=== PATIENT | male | born 1950 | race Caucasian/White ===

== ENCOUNTER 2016-11-14 16:16 | Inpatient (IN) | payer MEDICARE, OTHER ==
--- NOTE | ~2016-11-14 | CR72 ---
[facility] A Service of [facility] & [facility] RADIOLOGY TEXT RESULTS PATIENT: RHEA MACEDO LOCATION: [facility] 567-01 : 51 UNIT #: [id number] AGE: [address]: Riccardo Alvarez MD SEX: M ORDER DR: [id number] [facility] [address] [place], [place] [address] [id number] MR#: [id number] Acc #: [id number] NAME: RHEA MACEDO. : 1950 SEX: M STUDY DATE/TIME: 11/14/2016 15:20 UNIT: CEDOF ROOM: 95471 STUDY DESCRIPTION: CR Chest Single View Portable Attending Physician: Riccardo Alvarez M.D. Ordering Physician: Miles Nicholson M.D. Primary Care Physician: Messi Shaver M.D. MEDICAL IMAGING REPORT This report is preliminary unless electronic signature is present EXAM AP portable chest. DATE OF EXAM 11/14/2016 at 15:20. HISTORY Shortness of breath with activity and chest pain for 2 days. History of carotid artery disease. Previous history of stroke. Diabetes. Coronary artery bypass graft in 2007. Former smoker. Hypertension. COMPARISON AP portable chest, 07/30/2016. FINDINGS Stable cardiac enlargement allowing for patient rotation. No acute airspace disease is seen. No pleural effusion. No pneumothorax. No acute osseous abnormalities. IMPRESSION Stable cardiac enlargement. No acute chest findings. Dictated by... Marj Roberto M.D. THIS IS AN ELECTRONICALLY VERIFIED REPORT Marj Roberto M.D. at 11/15/2016 2:15 PM NIKKI/lucie TD: 11/14/2016 19:05 JOB #: [id number] [facility] A Service of [facility] & [facility] RADIOLOGY TEXT RESULTS PATIENT: RHEA MACEDO LOCATION: [facility] 567-01 : 51 UNIT #: [id number] AGE: [address]: Riccardo Alvarez MD SEX: M ORDER DR: MEDICAL IMAGING REPORT COPY
--- NOTE | ~2016-11-14 | DS ---
Unit #: [id number] #: [id number] Patient: RHEA MACEDO [id number] [facility] [address]. [place], [place] [address] [id number] MR#: [id number] NAME: RHEA MACEDO. ROOM: 567 Age: 66 Sex: M Admission Date: 11/14/2016 : 1950 Discharge Date: 11/16/2016 Attending Physician: Riccardo Alvarez M.D. Primary Care Physician: Messi Shaver M.D. DISCHARGE SUMMARY DISPOSITION The patient is being transferred to [facility] for possible high-risk PCI versus coronary artery bypass grafting surgery. DISCHARGE/TRANSFER DIAGNOSES 1. Unstable angina. 2. Coronary artery disease with cardiac catheterization on 11/15/[address] Armenta. Left ventricular ejection fraction was noted to be 55%. 80% stenosis was noted in the distal left main prior to the bifurcation. Left internal mammary artery graft to the mid LAD is patent with excellent distal runoff. Circumflex artery shows 75% stenosis and ramus intermedius shows 75% stenosis. Right coronary artery is normal. 3. The patient has a history of coronary artery bypass grafting times one with a MCKEON to the LAD in 2008. 4. Coronary artery stenosis. The patient underwent ultrasound of the coronary arteries approximately two weeks ago in Dr. Jules's office and was informed he has 80% stenosis of the internal carotid artery. 5. History of CVA in 2007. 6. Hyperlipidemia. 7. Hypertension. 8. Obstructive sleep apnea. 9. Obesity. HOSPITAL COURSE The patient initially presented to [facility] on 11/14/2016 with complaints of chest pain. He has a prior history of coronary artery bypass grafting times one with MCKEON to the LAD in 2008. He was diagnosed with unstable angina. He ruled out for non-ST elevated myocardial infarction. His troponins remained normal. The patient underwent cardiac catheterization on 11/15/[address] Armenta with the following results: Left ventricular systolic ejection fraction is noted to be 55%. The patient had 80% stenosis noted in the distal left main before the bifurcation. Left internal mammary artery graft to the mid LAD is patent with excellent distal runoff. Left circumflex artery at the origin showed 75% stenosis and the ramus intermediate showed 75% stenosis. Right coronary artery is normal. After a long discussion with both the patient and the family, and per Dr. Armenta as well as Dr. Polanco's recommendations, it was suggested the patient be transferred to [facility] for evaluation for PCI with stent insertion on the protected left main coronary artery with Impella standby versus coronary artery bypass grafting surgery. At this point I have spoken with Dr. Polanco. His Plavix will be placed on hold in Unit #: [id number] #: [id number] Patient: RHEA MACEDO anticipation for possible coronary artery bypass grafting surgery. At present the patient is up in the chair. He has ambulated in the hallway. He has no complaints of chest pain, shortness of breath or palpitations. His EKG has remained stable. His troponin has been negative. It is notable the patient did have evaluation with vascular surgery approximately two weeks ago and does have known right internal carotid artery occlusion with stenosis of approximately 80%. [employer] for medical management. DIAGNOSTIC DATA IMAGING: Chest x-ray on 11/14/2016 shows stable cardiac enlargement. No acute airspace disease. No pleural effusion. No pneumothorax. No acute chest findings. Again, the patient did have carotid Doppler studies at Dr. Jules's office. I do not have these records at present. There is reported 80% stenosis of the right internal carotid artery. CARDIOVASCULAR: EKG shows normal sinus rhythm, rate 87 beats per minute. Nonspecific ST abnormality. No acute ischemic change. LABORATORY: From November 15, he has no labs today. Glucose 108, BUN 13, creatinine 0.9, sodium 140, potassium 3.9, chloride 105, CO2 27, magnesium 2.1. Troponin has been less than 0.03 times 3. Hemoglobin from 11/15/2016 was 8.2, hematocrit 26.2, white blood cell count 6.3, platelet count 168. PHYSICAL EXAMINATION VITALS: Temperature 97.8, respiratory rate 18-20, pulse 60s-70s. Normal sinus rhythm. Blood pressure 127/55 to 159/50. BMI 39. GENERAL: This is a pleasant 66-year-old male up in the chair. Family is present at the bedside. He is currently in no acute distress. HEENT: Pupils are equal and round. Mucous membranes are moist. NECK: Trachea midline. No lymphadenopathy. No thyromegaly. I did not ascertain a carotid bruit on the right side. CARDIOVASCULAR: S1 and S2. Regular rate and rhythm. No murmur, gallop or rub. LUNGS: Clear to auscultation. No adventitial breath sounds. No rhonchi. No rales. No wheezes. ABDOMEN: Obese, soft, nontender, nondistended. Bowel sounds are positive. EXTREMITIES: Trace lower extremity edema. Pulses are palpable, but weak. PLAN The patient will be transferred to [facility] today. I have already spoken with the (1) center and they are getting him a telemetry bed on 03-24 Heart and Lung. He will be admitted to Dr. Polanco with cardiovascular surgery consult. He has been stable here from a cardiac standpoint. His rhythm has maintained sinus with no ectopy. The patient remains free of chest pain or shortness of breath. He will be sent to [facility] for possible high risk PCI with Impella device assist versus coronary artery bypass grafting. Will discontinue his Plavix at this time in anticipation for possible coronary artery bypass grafting surgery. He will continue on his Lovenox. All of this has been discussed with both the patient and the family. They are willing and agreeable to proceed and agreeable to transfer. Dr. Polanco has also spoken to Dr. Rivas in regard to this patient and they will be evaluating him soon. Further recommendations to follow. Unit #: [id number] #: [id number] Patient: RHEA MACEDO Dictated by... Genaro HauserPErosRHeriberto. for Stephanie Ayala/james TD: 11/16/2016 14:15 JOB #: [id number] DISCHARGE SUMMARY X Radha Britton APRN X DISCHARGE SUMMARY
--- NOTE | ~2016-11-14 | HP ---
Unit #: [id number] #: [id number] Patient: RHEA MACEDO [id number] [address] [place], [place] [address] [id number] I MR#: [id number] NAME: RHEA MACEDO. ROOM: 34616 Age: 66 Sex: M Admission Date: 11/14/2016 : 1950 Attending Physician: Riccardo Alvarez M.D. Primary Care Physician: Messi Shaver M.D. HISTORY AND PHYSICAL CHIEF COMPLAINT Chest pain. HISTORY OF PRESENT ILLNESS This 66-year-old gentleman has a history of coronary artery disease. He has a history of previous bypass in 2007. Recently, he has been having chest pain with minimal activity and walking around the house. At this moment, he is pain free. He denies a history of orthopnea, PND, palpitations, or syncope. PAST MEDICAL HISTORY 1. Hypertension. 2. Stroke. 3. Diabetes. 4. High cholesterol. PAST SURGICAL HISTORY 1. Bypass in 2007. 2. Left wrist surgery. 3. Right arm cyst. ALLERGIES He is not allergic to any medications. MEDICATIONS 1. Allopurinol 300 mg daily. 2. Aspirin 81 mg daily. 3. Lipitor 20 mg daily. 4. Carvedilol 3.125 mg twice daily. 5. Plavix 75 mg daily. 6. Lasix 40 mg daily. 7. Januvia 100 mg daily. 8. Levothyroxine 200 mcg daily. 9. Magnesium oxide 400 mg daily. 10. Namenda XR 28 mg daily. 11. Potassium chloride 20 mEq daily. 12. Riboflavin 400 mg tablet daily. 13. Vitamin B-Complex 1 tablet daily. FAMILY HISTORY Negative for premature CAD. SOCIAL HISTORY Does not smoke and does not drink. Unit #: [id number] #: [id number] Patient: RHEA MACEDO REVIEW OF SYSTEMS He has some dementia and also is hard of hearing. He denies any cough, sore throat, or sputum. He is concerned about his carotid stenosis and having a stroke. He denies any fever, denies any palpitations or syncope, and denies any heartburn, dysuria, or dysphagia. He has pain in his back. He also has pain in his knees. All other systems were reviewed and they are negative. PHYSICAL EXAMINATION GENERAL: He looks comfortable and not in any kind of distress. VITAL SIGNS: Heart rate is 70, blood pressure 130/60, and he is breathing with respiratory rate 16. HEENT: Eyes: Conjunctivae are normal. Pupils round and reactive. Oral mucosa is moist. No central cyanosis. NECK: No thyromegaly. Carotid upstrokes are normal. There is (1) in the right side, and JVD is not elevated. CHEST: He is breathing normal, clear to auscultation. CARDIOVASCULAR: No parasternal lift. S1 and S2 normally heard. No gallop, no murmur. ABDOMEN: Soft. Liver and spleen are not enlarged. Abdominal aorta not palpable. Guaiac test not indicated. EXTREMITIES: No pedal edema. He has 2+ bilateral femoral and dorsalis pedis pulses. DIGITS: No clubbing. SKIN: No rash or abnormal pigmentation. NEUROLOGIC: He is oriented x3. Mood is normal. Muscle tone in all extremities is normal. DIAGNOSTIC STUDIES CARDIOLOGY: EKG is showing sinus rhythm with nonspecific ST and T changes. ASSESSMENT 1. Unstable angina. 2. Coronary artery disease, status post bypass. 3. History of hypertension (2) diabetes. PLAN 1. Patient needs to be admitted to a monitored bed. 2. Will do serial enzymes to rule out myocardial infarction. 3. Patient will need a cardiac catheterization tomorrow. 1. Dictated by Stephanie Ayala/randall TD: 11/14/2016 18:28 JOB #: [id number] Unit #: [id number] #: [id number] Patient: RHEA MACEDO HISTORY AND PHYSICAL X Riccardo Alvarez MD HISTORY AND PHYSICAL
--- NOTE | ~2016-11-14 | EKG ---
PATIENT: RHEA MACEDO UNIT #: [id number] Ventricular Rate: 82 BPM Atrial Rate: 82 BPM P-R Interval: 156 ms QRS Duration: 80 ms Q-T Interval: 374 ms QTC Calculation(Bezet): 436 ms P [place]: 35 degrees Calculated T [place]: 64 degrees Diagnosis Line: Normal sinus rhythm with sinus arrhythmia Diagnosis Line: Minimal voltage criteria for LVH, may be normal Diagnosis Line: variant Diagnosis Line: Borderline ECG Diagnosis Line: When compared with ECG of 13-SEP-2016 16:18, Diagnosis Line: No significant change was found Diagnosis Line: Confirmed by JACQUELINE DALTON MD ([id number]) on 11/15/2016 Diagnosis Line: 7:28:59 PM INTERPRETING MD: SHA DAVEY
--- NOTE | ~2016-11-14 | CO ---
Unit #: [id number] #: [id number] Patient: RHEA MACEDO [id number] [address] [place], [place] [address] [id number] MR#: [id number] NAME: RHEA MACEDO. ROOM: 31996 Age: 66 Sex: M Admission Date: 11/14/2016 : 1950 Attending Physician: Riccardo Alvarez M.D. Primary Care Physician: Messi Shaver M.D. Consultation Date: 11/14/2016 CONSULTATION REPORT REASON FOR CONSULTATION Diabetes. HISTORY OF PRESENT ILLNESS The patient is a 66-year-old male with past medical history of coronary artery disease, anemia, hypertension, cerebrovascular accident, hypothyroidism, obstructive sleep apnea, vascular dementia, hyperlipidemia, BPH, gout, vitamin B12 deficiency, diverticular disease, testosterone deficiency, chronic headaches who was admitted by Dr. Alvarez for unstable angina. The patient states that he has had three to four days of chest pain and dyspnea on exertion. He states that the pain is in his mid chest. He describes it as "pressure." He states that it does not radiate although his reports that he has been complaining of right shoulder pain. He has also had dyspnea on exertion. He denies any diaphoresis. He states that the pressure resolves when he stops exerting himself. In the emergency department an EKG was done and showed normal sinus rhythm with sinus arrhythmia and a rate of 82 beats per minute. Initial cardiac enzymes are negative. He, as stated above, was admitted by Dr. Alvarez who has orders on the chart for cardiac catheterization in the morning. Regarding diabetes, the patient had a hemoglobin A1C on August 01, 2016 that was 5.7. He has been taking his medications as prescribed. He does not check his blood sugars at home. Glucose on his comprehensive metabolic panel today was 161. PAST MEDICAL HISTORY 1. Admission to [facility] July 30-2015 for acute right frontal and parietal ischemic cerebrovascular accident as well as lateral right occipital lobe with early subacute infarct to late acute infarct. He was discharged home on aspirin and Plavix which he has been taking as prescribed. He does have residual memory issues as well as decreased fine motor skills involving the left hand. 2. Coronary artery disease, status post coronary artery bypass grafting, followed by Dr. Polanco. 3. Chronic anemia. 4. Hypertension. 5. Hypothyroidism. 6. Obstructive sleep apnea, on CPAP, followed by Dr. Hill. 7. Vascular dementia. 8. Hyperlipidemia. 9. BPH. Unit #: [id number] #: [id number] Patient: RHEA MACEDO 10. Gout. 11. Vitamin B12 deficiency. 12. Diverticular disease. 13. Testosterone deficiency. 14. Chronic headaches, followed by Dr. Michael. PAST SURGICAL HISTORY 1. Colonoscopy. 2. Cardiac catheterization. 3. Left wrist surgery. 4. Coronary artery bypass grafting. 5. Right arm cyst surgery. SOCIAL HISTORY The patient lives with his . He quit smoking. There is no alcohol use. FAMILY HISTORY Family history is notable for his dad having a cerebrovascular accident. ALLERGIES No known allergies. HOME MEDICATIONS Include Flomax, AndroGel, potassium, ProctoFoam, levothyroxine, Januvia, Lasix, Brintellix, Aricept, Lipitor, Plavix, Namenda, Zyloprim, Coreg, Flovent and Nexia. Home medications will need to be reviewed and verified. REVIEW OF SYSTEMS A complete review of systems is negative except as indicated in the HPI. DIAGNOSTIC STUDIES CARDIOVASCULAR: EKG shows normal sinus rhythm with sinus arrhythmia and a rate of 82 beats per minute. LABORATORY: Troponin is less than 0.05. Complete blood count notable for hemoglobin and hematocrit of 9 and 28.1 respectively, MCV is 72.8, RDW is 18.3. Comprehensive metabolic panel notable for glucose of 161, ALT is 9. INR is 1. BNP is 268. IMAGING: Chest x-ray shows no acute abnormality. PHYSICAL EXAMINATION VITAL SIGNS: Temperature is 98.3. Pulse 85. Respirations 16. Blood pressure 111/47. Oxygen saturation is 97% on room air. GENERAL: The patient is a male who is awake and alert. HEENT: The head is atraumatic. Mucous membranes are moist. NECK: Neck is supple. Trachea is midline. CARDIOVASCULAR: Regular rate and rhythm. LUNGS: Lungs are clear to auscultation bilaterally with no increased work of breathing. ABDOMEN: Abdomen is soft, nontender, with bowel sounds present all four quadrants. EXTREMITIES: Nontender with no pedal edema. NEUROLOGIC: The patient is awake and alert. He follows commands. PSYCHIATRIC: Mood and affect are normal. The patient is cooperative. SKIN: Skin of examined areas is warm and dry. Unit #: [id number] #: [id number] Patient: RHEA MACEDO The patient is a 66-year-old male with: 1. Unstable angina. The patient was admitted by Dr. Alvarez who plans to do cardiac catheterization in the morning. 2. History of coronary artery disease, status post coronary artery bypass grafting. 3. Microcytic anemia. The patient's hemoglobin was 9.9 on September 13, 2016. It is 9 today. 4. Hypertension. 5. History of cerebrovascular accident with residual memory issues as well as decreased fine motor skills involving the left hand. 6. Hypothyroidism. 7. Obstructive sleep apnea on CPAP. 8. Vascular dementia. 9. Hyperlipidemia. 10. Benign prostatic hypertrophy. 11. Gout. 12. Vitamin B12 deficiency. 13. Diverticular disease. 14. Testosterone deficiency. 15. Chronic headaches followed by Dr. Michael. PLAN 1. Regarding diabetes I have ordered a hemoglobin A1C as well as low dose sliding-scale insulin with Accu-Cheks. 2. Regarding hypothyroidism I have ordered a TSH. 3. Regarding obstructive sleep apnea I have ordered CPAP at home settings. 4. Regarding chronic anemia I have ordered a repeat CBC for the morning and will continue to monitor closely. Thank you very much for the consultation. We will follow the patient along closely with you. Dictated by... La Cueto M.D. YOU/matthew TD: 11/14/2016 19:29 JOB #: [id number] CONSULTATION REPORT X La Cueto MD X CONSULTATION REPORT
--- NOTE | ~2016-11-14 | EKG ---
PATIENT: RHEA MACEDO UNIT #: [id number] Ventricular Rate: 87 BPM Atrial Rate: 87 BPM P-R Interval: 156 ms QRS Duration: 82 ms Q-T Interval: 374 ms QTC Calculation(Bezet): 450 ms P [place]: 40 degrees Calculated R [place]: 3 degrees Calculated T [place]: 70 degrees Diagnosis Line: Normal sinus rhythm Diagnosis Line: Nonspecific ST abnormality Lateral leads Otherwise Diagnosis Line: normal ECG Diagnosis Line: When compared with ECG of 14-NOV-2016 15:10, Diagnosis Line: (unconfirmed) Diagnosis Line: No significant change was found Diagnosis Line: Confirmed by JANIS WEBB MD ([id number]) on 11/16/2016 Diagnosis Line: 11:15:38 AM INTERPRETING MD: JON DAVEY
[2016-11-14 15:35] LABS: POC - CKMB <1.0 ng/mL (0.0-7.9); POC - TROPONIN <0.05 ng/mL (<=0.05)
[2016-11-14 15:40] LABS: BASOPHIL# 0.1 X10e3 (0-0.3); BASOPHIL% 1.1 % (0-2.5); EOSINOPHIL# 0.2 X10e3 (0-0.7); EOSINOPHIL% 3.6 % (0.0-7.0); HEMATOCRIT 28.1 % (38.0-50.0); LYMPHOCYTE# 1.4 X10e3 (1.0-3.5); LYMPHOCYTE% 20.1 % (17.0-45.0); MEAN CELL VOLUME 72.8 FL (83-96); MEAN CORPUSCULAR HEMOGLOBIN 23.3 PG (28-34); MEAN CORPUSCULAR HGB CONC 32.1 g/dL (30-36); MEAN PLATELET VOLUME 7.2 FL (6.5-11.5); MONOCYTE# 0.5 X10e3 (0-1.0); MONOCYTE% 7.7 % (3.0-12.0); NEUTROPHIL# 4.6 X10e3 (1.5-7.1); NEUTROPHIL% 67.5 % (40-75); PLATELET COUNT 206 X10e3 (140-420); RED BLOOD COUNT 3.86 X10e (3.90-5.60); RED CELL DISTRIBUTION WIDTH 18.3 % (11.0-15.5); WHITE BLOOD COUNT 6.9 X10e3 (4.0-10.5)
[2016-11-14 15:53] LABS: ALBUMIN SERUM 3.7 g/dL (3.5-5.0); ALKALINE PHOSPHATASE 63 U/L (32-92); ALT (SGPT) 9 U/L (10-40); AST (SGOT) 16 U/L (10-42); BILIRUBIN,TOTAL 0.3 mg/dL (0.2-2.0); BLOOD UREA NITROGEN 17 mg/dL (9-23); CARBON DIOXIDE 30 mmol/L (22-31); CHLORIDE 103 mmol/L (100-111); GLOM FILT RATE Estimated ABOVE60 mL/min (>60); GLUCOSE FASTING 161 mg/dL (70-110); PROTEIN TOTAL SERUM 6.4 g/dL (6.0-8.3); SODIUM 139 mmol/L (135-145)
[2016-11-14 15:54] LABS: DIFF IND NO
[2016-11-14 15:55] LABS: BILIRUBIN, DIRECT <0.1 mg/dL (0.0-0.2); BILIRUBIN,INDIRECT 0.2 mg/dL (0.0-0.9)
[2016-11-14 15:56] LABS: PARTIAL THROMBOPLASTIN TIME 24.7 SECONDS (23.5-31.3); PROTHROMBIN TIME (PATIENT) 10.1 SECONDS (9.6-11.5)
[~2016-11-14 16:16] MED LIST: ACETAMINOPHEN PO; ALLOPURINOL300 MG PO; AMBIEN10 MG PO; AMITRIPTYLINE H25 MG PO; ANDROGEL2.5 GM TOP; ANEXSIA 7.5/3251 TA1 PO; ANUSOL30 GM EXT; ARICEPT PO; ASPIRIN PO; ASPIRIN81 MG PO; BRINTELLIX10 MG PO; CAMBIA50 MG PO; COLACE PO; COMBIVENT INHALER; COREG PO; CRESTOR10 MG PO; CYANOCOBAL1000 MCG/M INJ; DIATX TABLET5 MG PO; EFFEXOR PO; FAMOTIDINE PO; FERROUS GLUCON324 MG PO; FLOMAX0.4 M1 PO; FLOVENT DI50 MCG/DIS INH; INDOMETHACIN50 MG PO; INDOMETHACIN75 MG PO; JANUVIA100 MG PO; KCL PO; LASIX PO; LASIX20 MG PO; LEVAQUIN PO; LEVOTHYROXINE; LEVOXYL PO; LEVOXYL200 MCG PO; LIPITOR PO; LISINOPRIL PO; LISINOPRIL5 MG PO; LORTAB 7.5-5001 TAB PO; MEMANTINE; NAMENDA XR28 MG PO; NAPROXEN SODIU550 MG PO; NIASPAN PO; NITROSTAT0.4 MG SL; ONGLYZA; ONGLYZA5 MG PO; PEPCID PO; PLAVIX PO; POTASSIUM CHLO10 ME1 PO; POTASSIUM CHLO10 MEQ PO; POTASSIUM CHLO20 ME1 PO; PROCTOFOAM-HC 110 GM PR; PROTONIX PO; SYNTHROID PO; TEMAZEPAM PO; TOPAMAX PO; TRIPLEX PO; TYLOX1 CAP 5/50 PO; ZESTORETIC; ZESTORETIC 20/21 TAB PO; ZICAM IH; ZINC PO; ZITHROMAX500 MG PO; ZOCOR PO; ZOLOFT PO; ZYLOPRIM PO; [UNRECOGNIZED DRUG - OTHER]
[2016-11-14 17:02] LABS: POC - CKMB <1.0 ng/mL (0.0-7.9); POC - TROPONIN <0.05 ng/mL (<=0.05)
[2016-11-14] MEDS ORDERED: ALLOPURINOL300 MG PO (17:04)
[2016-11-14] MEDS ORDERED: LIPITOR20 MG PO (17:05)
[2016-11-14] MEDS ORDERED: COREG3.125 MG PO (17:05)
[2016-11-14] MEDS ORDERED: ASPIRIN81 M2 PO (17:05)
[2016-11-14] MEDS ORDERED: FUROSEMIDE40 MG PO (17:06)
[2016-11-14] MEDS ORDERED: CLOPIDOGREL BIS75 MG PO (17:06)
[2016-11-14] MEDS ORDERED: DONEPEZIL HCL10 MG PO (17:06)
[2016-11-14] MEDS ORDERED: JANUVIA PO (17:07)
[2016-11-14] MEDS ORDERED: LEVO-T200 MCG PO (17:07)
[2016-11-14] MEDS ORDERED: MAGNESIUM OXID500 M1 PO (17:08)
[2016-11-14] MEDS ORDERED: NAMENDA XR28 MG PO (17:08)
[2016-11-14] MEDS ORDERED: POTASSIUM CHLO20 ME1 PO (17:09)
[2016-11-14] MEDS ORDERED: RIBOFLAVIN400 MG PO (17:09)
[2016-11-14] MEDS ORDERED: SUPER B COMPLEX1 CAP PO (17:10)
[2016-11-14] MEDS ORDERED: TRINTELLIX PO (17:10)
[2016-11-15 07:08] LABS: HEMATOCRIT 26.2 % (38.0-50.0); HEMOGLOBIN 8.2 gm/dL (13.0-16.0); MEAN CELL VOLUME 72.8 FL (83-96); MEAN CORPUSCULAR HEMOGLOBIN 22.8 PG (28-34); MEAN CORPUSCULAR HGB CONC 31.4 g/dL (30-36); MEAN PLATELET VOLUME 6.9 FL (6.5-11.5); RED BLOOD COUNT 3.6 X10e (3.90-5.60); RED CELL DISTRIBUTION WIDTH 18.1 % (11.0-15.5); WHITE BLOOD COUNT 6.3 X10e3 (4.0-10.5)
[2016-11-15 07:24] LABS: PROTHROMBIN TIME (PATIENT) 10.3 SECONDS (9.6-11.5)
[2016-11-15 07:40] LABS: ALBUMIN SERUM 3.5 g/dL (3.5-5.0); ALKALINE PHOSPHATASE 53 U/L (32-92); ALT (SGPT) 10 U/L (10-40); AST (SGOT) 18 U/L (10-42); BILIRUBIN,TOTAL 0.3 mg/dL (0.2-2.0); BLOOD UREA NITROGEN 13 mg/dL (9-23); BUN/CREATININE RATIO 14.44; CALCIUM SERUM 8.9 mg/dL (8.4-10.2); CARBON DIOXIDE 27 mmol/L (22-31); CHLORIDE 105 mmol/L (100-111); CREATININE SERUM 0.9 mg/dL (0.6-1.4); GLOM FILT RATE Estimated ABOVE60 mL/min (>60); GLUCOSE FASTING 108 mg/dL (70-110); POTASSIUM 3.9 mmol/L (3.5-5.1); PROTEIN TOTAL SERUM 6.1 g/dL (6.0-8.3); SODIUM 140 mmol/L (135-145)
[2016-11-15 09:03] LABS: CK TOTAL 37 IU/L (36-174)
[2016-11-15 10:09] LABS: CK TOTAL 44 IU/L (36-174)
[2016-11-15 18:08] LABS: CK TOTAL 45 IU/L (36-174)
== END 2016-11-16 16:03 | disposition short-term general hospital (02) | DRG 287 ==
LOC: CED 16:16 → CEDOF 17:05 → C5C 23:01
PROVIDERS: Emergency Medicine; Internal Medicine Cardiovascular Disease
PROC: 4A023N7 Measurement of Cardiac Sampling and Pressure, Left Heart, Percutaneous Approach (ICD-10-PCS; principal; 2016-11-15)
PROC: B211YZZ Fluoroscopy of Multiple Coronary Arteries using Other Contrast (ICD-10-PCS; 2016-11-15)
PROC: B215YZZ Fluoroscopy of Left Heart using Other Contrast (ICD-10-PCS; 2016-11-15)
DX: I25.110 Atherosclerotic heart disease of native coronary artery with unstable angina pectoris (principal); F01.50 Vascular dementia, unspecified severity, without behavioral disturbance, psychotic disturbance, mood disturbance, and anxiety; D64.9 Anemia, unspecified; I10 Essential (primary) hypertension; E53.8 Deficiency of other specified B group vitamins; E11.9 Type 2 diabetes mellitus without complications; Z95.1 Presence of aortocoronary bypass graft; Z86.73 Personal history of transient ischemic attack (TIA), and cerebral infarction without residual deficits; E03.9 Hypothyroidism, unspecified; G47.33 Obstructive sleep apnea (adult) (pediatric); E78.5 Hyperlipidemia, unspecified; N40.0 Benign prostatic hyperplasia without lower urinary tract symptoms; M10.9 Gout, unspecified; E29.1 Testicular hypofunction; Z79.02 Long term (current) use of antithrombotics/antiplatelets; Z79.84 Long term (current) use of oral hypoglycemic drugs
CPT/HCPCS: 36415; 71010; 80048; 80053; 80076; 82550; 82553; 82947; 83036; 83735; 83880; 84443; 84484; 85025; 85027; 85610; 85730; 86850; 86900; 86901; 93005; 99285; C1769; C1887; C1894; J1644; J1650; J2250; J3010